=== PATIENT | male | born 1955 | race Caucasian/White ===

== ENCOUNTER 2018-03-09 04:21 | Emergency (ER) | payer OTHER ==
[~2018-03-09] VITALS: Ht 175.3 cm; Wt 103.0 kg
[~2018-03-09 04:21] MED LIST: AMLODIPINE-BEN1 EAC3 PO; ANDROGEL2.5 G1; ANTIBIOTIC; ASPIRIN EC81 M1 PO; BENICAR20 MG PO; CIPROFLOXACIN500 M3 PO; FENOFIBRATE160 MG PO; LORTAB 5 MG/5001 TA1 PO; OMEPRAZOLE 20 M20 M1 PO; OXYCODON-ACETA1 EAC1 PO; PERCOCET 7.5-31 EACH PO; PHENERGAN 25 MG25 M1 PO; PRILOSEC 20 MG20 MG PO; SENNA-S TABLET1 EACH PO; SIMVASTATIN; TYLENOL EX-STR500 M2 PO
[2018-03-09] MEDS ORDERED: NEURONTIN 300300 M1 (04:52)
[2018-03-09] MEDS ORDERED: PLAVIX 75 MG TA75 M1 (04:52)
[2018-03-09] MEDS ORDERED: LIPITOR80 MG (04:53)
[2018-03-09] MEDS ORDERED: METFORMIN HCL500 MG (04:53)
[2018-03-09] MEDS ORDERED: AMIODARONE HCL100 MG (04:53)
[2018-03-09] MEDS ORDERED: PREDNISONE10 MG (04:54)
[2018-03-09 05:02] LABS: ABSOLUTE LYMPHOCYTES 2.1 thou/uL (0.8-5.3); ABSOLUTE NEUTROPHILS 13.8 thou/uL (1.6-8.1); BASOPHILS 0.1 %; HEMATOCRIT 39.4 % (42.0-52.0); HEMOGLOBIN 12.6 gm/dL (14.0-18.0); LYMPHOCYTES 12.6 %; MCH 30.4 pg (26.0-34.0); MONOCYTES 5.6 %; MPV 9.2 fl. (7.2-11.1); NUCLEATED RBCS 0 /100WBC; PLATELET COUNT* 473 thou/uL (150-400); POLYS 81.7 %; RBC 4.14 mil/uL (4.50-6.00); WBC 16.9 thou/uL (4.0-11.0)
[2018-03-09 05:09] LABS: ANION GAP 8 mmol/L (7-16); BUN 29 mg/dL (7-18); CALCIUM 9.2 mg/dL (8.5-10.1); CHLORIDE 105 mmol/L (98-107); CO2 28 mmol/L (21-32); CREATININE 0.8 mg/dL (0.6-1.3); GLUCOSE 249 mg/dL (70-99); POTASSIUM 4.1 mmol/L (3.5-5.1); SODIUM 141 mmol/L (136-145)
[2018-03-09 05:10] LABS: INR 1.1; PROTIME 11.1 Seconds (9.20-11.50)
[2018-03-09 05:20] LABS: ALBUMIN 3.5 g/dL (3.4-5.0); ALKALINE PHOSPHATASE 80 U/L (46-116); NT-PRO BRAIN NAT PEPTIDE 8840 pg/mL (<300); SGOT 52 U/L (15-37); SGPT 71 U/L (30-65); TOTAL BILIRUBIN 0.2 mg/dL (<0.1-1.0); TOTAL PROTEIN 7.5 g/dL (6.4-8.2); TROPONIN-I LEVEL <0.06 ng/mL (<0.06)
[2018-03-09 06:34] LABS: BE -1.2 mmol/L (-2 to +3); HCO3 24.5 mmol/L (22.0-26.0); PCO2 44.7 mmHg (35.0-45.0); pH 7.356 (7.340-7.450)
[2018-03-09 06:37] LABS: PO2 216.7 mmHg (75.0-100.0)
[2018-03-09 08:19] VITALS: BP 124/77
--- NOTE | 2018-03-09 11:06 | EKG ---
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 : 1955 Requested By: Sally Gordon Order Number: [id number] Jaylin MD: Zia Shaw Measurements Intervals [place] Rate: 133 P: -6 AR: 126 QRS: -33 QRSD: 173 T: 88 QT: 401 QTc: 597 Interpretive Statements Sinus tachycardia Probable left atrial enlargement Left bundle branch block Baseline wander in lead(s) V3,V4,V5,V6 No previous ECG available for comparison Electronically Signed On 03-09-2018 11:06:03 CDT by Zia Shaw [email or web address] <ELECTRONICALLY SIGNED> By: Zia Shaw MD, [facility] 03/09/18 1106 0428 0428 Zia Shaw MD, [facility] /EPI
--- NOTE | 2018-03-09 11:08 | EKG ---
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
== END 2018-03-09 08:19 | disposition short-term general hospital (02) ==
LOC: M.ERS 04:21
PROVIDERS: Emergency Medicine
DX: R06.03 Acute respiratory distress (principal); I10 Essential (primary) hypertension; E78.00 Pure hypercholesterolemia, unspecified; K21.9 Gastro-esophageal reflux disease without esophagitis; Z88.1 Allergy status to other antibiotic agents; Z88.5 Allergy status to narcotic agent